=== PATIENT | female | born 1945 | race Caucasian/White ===

== ENCOUNTER 2017-09-29 10:37 | Emergency (ER) | payer MEDICARE, OTHER ==
[~2017-09-29 10:37] MED LIST: AMOX500C2 PO
--- OUTSIDE RECORDS SUMMARY | 2017-09-29 10:42 | XMS REPORT | Clinical Summary ---
Author Author [facility] Organization [facility] Address Unknown Phone Unavailable Care Team Providers Care Digital Marketing Program Manager Name Role Phone Mario Gibson MD Unavailable Unavailable Lyla Quinones MD Unavailable Source Comments Some departments are not documenting in the electronic medical record. If you do not see the information that you expected, contact Release of Information in the Health Information Management department at [phone] for further assistance in locating additional records.[facility] Allergies Active Allergy Reactions Severity Noted Date Comments Penicillins UNKNOWN 07/15/2013 Current Medications Prescription Sig. Disp. Refills Start End Date Status Date pimozide(+) (ORAP) 2 mg Pt to take 1/2 pill for 60 Tab 3 07/15/19 Active tablet 7-10 day qHS. If 14 tolerated can increase to full pill, pt can eventually increase to 1.5 to 2 pills Active Problems Not on file Family History Relation Name Status Comments Social History Tobacco Use Types Packs/Day Years Used Date Former Smoker Sex Assigned at Date Recorded Not on file Last Filed Vital Signs Vital Sign Reading Time Taken Blood Pressure 119/64 07/15/2013 12:53 PM EMERGENCY WORKER Pulse - - Temperature - - Respiratory Rate - - Oxygen Saturation - - Inhaled Oxygen - - Concentration Weight 56.3 kg (124 lb 3.2 oz) 07/15/2013 12:53 PM EMERGENCY WORKER Height 162.6 cm (5' 4") 07/15/2013 12:53 PM EMERGENCY WORKER Body Mass Index 21.32 07/15/2013 12:53 PM EMERGENCY WORKER Plan of Treatment Health Maintenance Due Date Last Done Comments PHYSICAL (COMPREHENSIVE) 1952 EXAM PERTUSSIS VACCINE 1954 TETANUS VACCINE 1960 BREAST CANCER SCREENING 1983 COLORECTAL CANCER 1993 SCREENING SHINGLES VACCINE 2003 OSTEOPOROSIS SCREENING 2008 PREVNAR/PNEUMOVAX (#1) 2008 INFLUENZA VACCINE 04/08/2018 Results Not on filefrom Last 3 Months
== END 2017-09-29 10:54 ==
LOC: EDUNIT# 10:37 → ER 10:39
DX: M62.81 Muscle weakness (generalized) (principal)

== ENCOUNTER → 2017-10-08 | Outpatient (CLI) | payer MEDICARE, OTHER ==
[~2017-10-08] MED LIST changes: +CATHETER FLUSH 10 ML SYR IV SCH
--- NOTE | 2017-10-08 13:21 | Diagnostic Imaging Report ---
INDICATION: Right upper quadrant pain. TECHNIQUE: Acquisitions were acquired over the abdomen after the administration of 5.49 mCi of technetium 99m Choletec. The ejection fraction was calculated after the patient ingested one can of Ensure given at 60 minutes. FINDINGS: There is homogeneous uptake of isotope throughout the liver. There is significant accumulation within the gallbladder by 30 minutes. There is free flow of activity in the small bowel. The ejection fraction was calculated to be 26%. IMPRESSION: No evidence of cystic duct obstruction; however, there is an abnormal ejection fraction of 26%. Dictated by: Dictated on workstation # [id number]
== END ==
LOC: CARD 09:40
PROVIDERS: ATTEND Nurse Practitioner Family
DX: R10.11 Right upper quadrant pain (principal); K82.8 Other specified diseases of gallbladder
CPT/HCPCS: 78227

== ENCOUNTER 2017-10-22 11:00 | Outpatient (CLI) | payer MEDICARE, OTHER ==
[~2017-10-22] VITALS: Ht 162.6 cm; Wt 58.5 kg
[~2017-10-22 11:00] MED LIST changes: -CATHETER FLUSH 10 ML SYR IV SCH
== END 2017-10-22 11:42 ==
LOC: PREOP 11:00
PROVIDERS: ATTEND Surgery
DX: Z01.818 Encounter for other preprocedural examination (principal); Z12.11 Encounter for screening for malignant neoplasm of colon; K21.9 Gastro-esophageal reflux disease without esophagitis; K82.8 Other specified diseases of gallbladder

== ENCOUNTER 2017-10-25 08:35 | Day surgery (SDC) | payer MEDICARE, OTHER ==
[~2017-10-25] VITALS: Ht 162.6 cm; Wt 58.5 kg
--- OUTSIDE RECORDS SUMMARY | 2017-10-25 08:38 | XMS REPORT | Clinical Summary ---
Author Author [facility] Organization [facility] Address Unknown Phone Unavailable Care Team Providers Care Employment Law Attorney Name Role Phone Mario Gibson MD Unavailable Unavailable Lyla Quinones MD Unavailable Source Comments Some departments are not documenting in the electronic medical record. If you do not see the information that you expected, contact Release of Information in the Health Information Management department at [phone] for further assistance in locating additional records.[facility] Allergies Active Allergy Reactions Severity Noted [...] Taken Blood Pressure 119/64 07/15/2013 12:53 PM EXTRACTOR FILLER Pulse - - Temperature - - Respiratory Rate - - Oxygen Saturation - - Inhaled Oxygen - - Concentration Weight 56.3 kg (124 lb 3.2 oz) 07/15/2013 12:53 PM EXTRACTOR FILLER Height 162.6 cm (5' 4") 07/15/2013 12:53 PM EXTRACTOR FILLER Body Mass Index 21.32 07/15/2013 12:53 PM EXTRACTOR FILLER Plan of Treatment Health Maintenance Due Date Last Done Comments PHYSICAL (COMPREHENSIVE) 1950 EXAM PERTUSSIS VACCINE 1954 TETANUS VACCINE 1960 BREAST CANCER SCREENING 1983 COLORECTAL CANCER 1993 SCREENING SHINGLES VACCINE 2003 OSTEOPOROSIS SCREENING 2008 PREVNAR/PNEUMOVAX (#1) 2008 INFLUENZA VACCINE 04/08/2018 Results Not on filefrom Last 3 Months
--- OUTSIDE RECORDS SUMMARY | 2017-10-25 08:39 | XMS REPORT | Continuity of Care Document ---
Author Author [facility] Organization [facility] Address Unknown Phone Unavailable Allergies Active Description Code Type Severity Reaction Onset Reported/Identified Relationship to Patient Clinical Status Yes NO KNOWN DRUG ALLERGIES UNKNOWN NO KNOWN DRUG ALLERG Yes Penicillins [id number] Drug Allergy Unknown N/A 11/02/2014 Medications Medication Packaging Start Date Stop Date Route Dosage Sig LEVALBUTEROL LIQ 1.25 MG/3ML (XOPENEX) MG 09/11/2017 09/11/2017 PRN ONCE AZITHROMYCIN TAB 500 MG (ZITHROMAX) MG 09/11/2017 09/11/2017 ONCE&2208 CEFTRIAXONE VIAL INJ 500 MG (ROCEPHIN VIAL) MG 09/11/2017 09/11/2017 ONCE&2208 METHYLPREDNISOLONE VIAL INJ 40 MG/CC (SOLU-MEDROL VIAL) MG 09/11/2017 09/11/2017 ONCE&2208 Problems Date Dx Coded Attending Type Code Diagnosis Diagnosed By 11/02/2014 DEON GILLIAM MD Ot 724.5 BACKACHE NOS 11/02/2014 Ot 785.1 08/16/2017 MICHI NARANJO JR 724.2 LUMBAGO 08/16/2017 MICHI NARANJO JR M54.5 LOW BACK PAIN 09/05/2017 Rio Osman W 575.10 CHOLECYSTITIS, UNSPECIFIED 09/05/2017 Elli Osman-[place] W 789.01 ABDOMINAL PAIN, RIGHT UPPER QUADRANT 09/05/2017 Meagan OsmanGeorgia W K81.9 CHOLECYSTITIS, UNSPECIFIED 09/05/2017 Rio Osman W R10.11 RIGHT UPPER QUADRANT PAIN 09/05/2017 Elli Osman-[place] W 575.10 CHOLECYSTITIS, UNSPECIFIED 09/05/2017 Elli Osman-[place] W 789.01 ABDOMINAL PAIN, RIGHT UPPER QUADRANT 09/05/2017 Rio Osman W K81.9 CHOLECYSTITIS, UNSPECIFIED 09/05/2017 Dominik Osmann-[place] W R10.11 RIGHT UPPER QUADRANT PAIN 09/07/2017 Osman, Roxaneu W 575.10 CHOLECYSTITIS, UNSPECIFIED 09/07/2017 Osman, Roxaneu W 789.01 ABDOMINAL PAIN, RIGHT UPPER QUADRANT 09/07/2017 Dawson, Roxaneu W K81.9 CHOLECYSTITIS, UNSPECIFIED 09/07/2017 Osman, Roxaneu W R10.11 RIGHT UPPER QUADRANT PAIN 09/07/2017 Osman, Roxaneu W 575.10 CHOLECYSTITIS, UNSPECIFIED 09/07/2017 Osman, Roxaneu W 789.01 ABDOMINAL PAIN, RIGHT UPPER QUADRANT 09/07/2017 Osman, Roxaneu W K81.9 CHOLECYSTITIS, UNSPECIFIED 09/07/2017 Osman, Roxaneu W R10.11 RIGHT UPPER QUADRANT PAIN 09/11/2017 AYO PÉREZ A 465.8 ACUTE UPPER RESPIRATORY INFECTIONS OF OTHER MULTIPLE SITES 09/11/2017 ELISAAYO W 786.5 CHEST PAIN 09/11/2017 ELISAAYO A J06.9 ACUTE UPPER RESPIRATORY INFECTION, UNSPECIFIED 09/11/2017 ELISAAYO W R07.89 OTHER CHEST PAIN 09/29/2017 KERRI MENA DO Ot M62.81 MUSCLE WEAKNESS (GENERALIZED) 10/05/2017 Ot 785.1 PALPITATIONS 10/08/2017 Ot 785.1 PALPITATIONS 10/08/2017 Ot 785.1 PALPITATIONS 10/09/2017 TARUN, JAZZ L WEB MOBILE DESIGNER Ot K82.8 OTHER SPECIFIED DISEASES OF GALLBLADDER 10/09/2017 TARUN, JAZZ L WEB MOBILE DESIGNER Ot R10.11 RIGHT UPPER QUADRANT PAIN 10/15/2017 TARUN, JAZZ L WEB MOBILE DESIGNER Ot K82.8 OTHER SPECIFIED DISEASES OF GALLBLADDER 10/15/2017 TARUN, JAZZ L WEB MOBILE DESIGNER Ot R10.11 RIGHT UPPER QUADRANT PAIN 10/17/2017 TARUN, JAZZ L WEB MOBILE DESIGNER Ot K82.8 OTHER SPECIFIED DISEASES OF GALLBLADDER 10/17/2017 TARUN, JAZZ L WEB MOBILE DESIGNER Ot R10.11 RIGHT UPPER QUADRANT PAIN 10/18/2017 Ot 785.1 PALPITATIONS 10/18/2017 TARUN, JAZZ L WEB MOBILE DESIGNER Ot K82.8 OTHER SPECIFIED DISEASES OF GALLBLADDER 10/18/2017 JAZZ MCNEIL WEB MOBILE DESIGNER Ot R10.11 RIGHT UPPER QUADRANT PAIN 10/19/2017 MIGEL DODD MD, Ot K21.9 GASTRO-ESOPHAGEAL REFLUX DISEASE WITHOUT 10/19/2017 MIGEL DODD MD, Ot K82.8 OTHER SPECIFIED DISEASES OF GALLBLADDER 10/19/2017 MIGEL DODD MD, Ot Z01.818 ENCOUNTER FOR OTHER PREPROCEDURAL EXAMIN 10/19/2017 MIGEL DODD MD, Ot Z12.11 ENCOUNTER FOR SCREENING FOR MALIGNANT NE 10/22/2017 MIGEL DODD MD, Ot K21.9 GASTRO-ESOPHAGEAL REFLUX DISEASE WITHOUT 10/22/2017 MIGEL DODD MD, Ot K82.8 OTHER SPECIFIED DISEASES OF GALLBLADDER 10/22/2017 MIGEL DODD MD, Ot Z01.818 ENCOUNTER FOR OTHER PREPROCEDURAL EXAMIN 10/22/2017 MIGEL DODD MD, Ot Z12.11 ENCOUNTER FOR SCREENING FOR MALIGNANT NE Procedures There is no data. Results Test Result Range Comprehensive Metabolic Panel - 09/05/17 10:18 Albumin 4.0 g/dL 3.6-5.1 ALP 66 U/L 35-130 ALT 17 U/L 6-45 Anion Gap 9 6-14 AST 19 U/L 2-40 BUN 13 mg/dL 5-25 Calcium 10.2 mg/dL 8.3-10.4 Chloride 108 mmol/L 95-114 CO2 27 mEq/L 22-33 Creat 0.84 mg/dL 0.50-1.50 eGFR 66 mL/min/1.73m2 >59 Globulin 2.5 g/dL 2.3-3.5 Glucose 104 mg/dL 70-110 Osmo 288 280-295 Potassium 4.6 mmol/L 3.5-5.3 Sodium 139 mmol/L 134-148 TBil 0.6 mg/dL 0.2-1.2 TP 6.5 g/dL 6.0-8.3 Gamma Glutamyl Transferase - 09/05/17 10:18 GGT 18 U/L 5-40 Lipase - 09/05/17 10:18 Lipase 24 U/L 7-59 Troponin I - 09/11/17 21:38 Troponin <0.020 ng/mL 0.0-0.4 CK-MB - 09/11/17 21:38 CK-MB 2.9 ng/ml 0.0-9.2 Encounters ACCT No. Visit Date/Time Discharge Status Pt. Type Provider Facility Loc./Unit Complaint [id number] 10/22/2017 11:00:00 10/22/2017 11:42:00 DIS Outpatient MIGEL DODD MD [facility] PREOP BILIARY DYSKINESIA, REFLUX/SCREENING [id number] 10/08/2017 09:40:00 10/08/2017 23:59:59 CLS Outpatient JAZZ MCNEIL APRN [facility] CARD RUQ PAIN [id number] 09/29/2017 10:39:00 09/29/2017 10:54:00 DIS Emergency KERRI MENA DO [facility] ER WEAKNESS IN LEGS [id number] 11/02/2014 19:02:00 11/02/2014 20:45:00 DIS Emergency DEON GILLIAM MD [facility] ER BACK PAIN [id number] 10/25/2017 09:45:00 PEN Preadmit MIGEL DODD MD [facility] SDC BILIARY DYSKINESIA, REFLUX/SCREENING [id number] 07/24/2012 07:53:00 Document Registration [id number] 09/11/2017 21:26:00 09/11/2017 22:55:00 DIS Outpatient ELISA [facility] ER [id number] 09/07/2017 11:54:00 09/07/2017 23:59:00 DIS Outpatient Rio Osman [id number] 09/05/2017 10:14:00 09/05/2017 23:59:00 DIS Outpatient Rio Osman [id number] 06/28/2017 11:59:00 08/16/2017 08:45:00 [place]patient [place]ARANJO [place] [id number] 09/11/2017 21:51:55 Document Registration
[2017-10-25] MEDS ORDERED: CLINDAMYCIN 600 MG/50 ML IVPB 50 ML IV ONE (09:15)
[2017-10-25] MEDS ORDERED: CATHETER FLUSH 10 ML SYR IV PRN (09:15)
[2017-10-25] MEDS: LACTATED RINGERS 1,000 ML IV PRN ×2 (09:18→13:15)
[2017-10-25 09:31] VITALS: BP 114/90
[2017-10-25] MEDS ORDERED: LIDOCAINE PF 2% 5 ML (XYLOCAINE) VIAL ONE (10:18)
[2017-10-25] MEDS ORDERED: fentaNYL INJECTION 100 MCG/2 ML AMP ONE (10:18)
[2017-10-25] MEDS ORDERED: DEXAMETHASONE 10 MG/ML (DECADRON) 1 ML VIAL ONE (10:18)
[2017-10-25] MEDS ORDERED: proPOfol 200 MG/20 ML (DIPRIVAN) VIAL IV ONE (10:18)
[2017-10-25] MEDS ORDERED: SEVOFLURANE (ULTANE) 15 ML INHAL SOLN ONE ×6 (10:18→12:29)
[2017-10-25] MEDS ORDERED: ONDANSETRON 4 MG/2 ML (SDV) Z0FRAN ONE (10:18)
[2017-10-25] MEDS ORDERED: MIDAZOLAM 2 MG/2 ML (VERSED) VIAL ONE (10:18)
[2017-10-25] MEDS ORDERED: ROCURONIUM 10 MG/ML 5 ML SYRINGE IV ONE (10:19)
--- NOTE | 2017-10-25 10:29 | Progress Note-Pre Operative ---
Pre-Operative Progress Note H&P Reviewed The H&P was reviewed, patient examined and no changes noted. Date Seen by Provider: Oct 25, 2017 Time Seen by Provider: 10:00 Date H&P Reviewed: Oct 25, 2017 Time H&P Reviewed: 10:00 Pre-Operative Diagnosis: symptomatic chronic acalulous cholecystitis, GERD, screening o MIGEL DODD MD Oct 25, 2017 10:29 am
[2017-10-25] MEDS ORDERED: HYDROcodone/APAP 5 MG/325 MG (LORTAB) TAB PO ONE (10:30)
[2017-10-25] MEDS ORDERED: ONDANSETRON 4 MG/2 ML (SDV) Z0FRAN IVP PRN ×2 (10:30→12:45)
[2017-10-25] MEDS ORDERED: morphine INJ 10 MG/ML 1ML (SYR OR VIAL) IVP PRN (10:30)
[2017-10-25] MEDS ORDERED: ACETAMINOPHEN 325 MG TABLET PO PRN (10:30)
[2017-10-25] MEDS ORDERED: BUP/EPI 0.5% 1:200,000 (SENSORCAINE) 30 ML VIAL ONE (10:33)
[2017-10-25] MEDS ORDERED: NEOSTIGMINE 1 MG/ML 5 ML SYRINGE ONE (11:51)
[2017-10-25] MEDS ORDERED: GLYCOPYRROLATE 0.2 MG/ML (ROBINUL) 2 ML VIAL ONE (11:51)
--- NOTE | 2017-10-25 12:51 | Progress Note-Post Operative ---
Post-Operative Progess Note Surgeon (s)/Hearing Aid Fitter (s) Surgeon MIGEL DODD MD Hearing Aid Fitter: maikol scott FOOD SERVICE TEAM MEMBER Pre-Operative Diagnosis symptomatic chronic acalulous cholecystitis, GERD, screening colo Post-Operative Diagnosis symptomatic chronic acalculous cholecystitis. reflux esophagitis(class B), moderate HH(3cm), mild-mod gastritis. chronic stage 2ext and int hemorroids, moderate sigmoid diverticulosis. Procedure & Operative Findings Date of Procedure 10/25/17 Procedure Performed/Findings laparoscopic cholecystectomy. EGD with bx. Colonoscopy. Anesthesia Type GET Estimated Blood Loss Estimated blood loss (mL): minimal Specimens/Packing Specimens Removed GE jxn, antrum MIGEL DODD MD Oct 25, 2017 12:51 pm
[2017-10-25] MEDS ORDERED: HYDR-34 PO (12:53)
--- NOTE | 2017-10-25 12:53 | Discharge Inst-Surgical ---
D/C Lap Instructions-JU New, Converted, or Re-Newed RX: RX on Chart Follow Up Appt in 2 weeks Activity as tolerated No driving for 24 hours No driving while on pain medications Incentive Spirometry use every 2 hours while awake Regular Diet Symptoms to Report: Fever over 101 degree F, Nausea/Vomiting Infection Signs and Symptoms to report: Increased redness, Foul odor of wound, Increased drainage Bathing instructions: May shower Operative Area Clean/Dry; Keep incision clean/dry If any problems/questions: Contact your physician or go to Emergency Room MIGEL DODD MD Oct 25, 2017 12:53 pm
[2017-10-25] MEDS: morphine INJ 10 MG/ML 1ML (SYR OR VIAL) IVP PRN ×2 (13:10→13:15)
[2017-10-25 13:50] VITALS: BP 97/69
--- NOTE | 2017-10-25 14:00 | Anesthesia-General Post-Op ---
General Patient Condition Mental Status/LOC: Same as Preop Cardiovascular: Satisfactory Nausea/Vomiting: Absent Respiratory: Satisfactory Pain: Controlled Complications: Absent Post Op Complications Complications None Follow Up Care/Instructions Patient Instructions None needed. Anesthesia/Patient Condition Patient Condition Patient is doing well, no complaints, stable vital signs, no apparent adverse anesthesia problems. No complications reported per nursing. ROSSY HUNT CRNA Oct 25, 2017 14:00
[2017-10-25 14:20] VITALS: BP 106/71
[2017-10-25 14:50] VITALS: BP 120/80
[2017-10-25 15:00] VITALS: BP 120/80
[2017-10-25] MEDS ORDERED: BUP/EPI 0.5% 1:200,000 (SENSORCAINE) 30 ML VIAL INJ ONE (15:00)
--- NOTE | 2017-10-25 20:45 | OPERATIVE REPORT ---
DATE OF SERVICE: 10/25/2017 ATTENDING PRIMARY CARE PHYSICIAN: Dr. Osman. PREOPERATIVE DIAGNOSES: Symptomatic chronic acalculous cholecystitis. Gastroesophageal reflux disease, screening colonoscopy. POSTOPERATIVE DIAGNOSES: Chronic acalculous cholecystitis, no stones; reflux esophagitis class B; small to moderate size hiatal hernia, approximately 3 cm in size; mild to moderate gastritis; chronic stage II external and internal hemorrhoids; moderate sigmoid diverticulosis. PROCEDURES: EGD with biopsy, colonoscopy, laparoscopic cholecystectomy. SURGEON: Migel Suarez MD. BACTERIOLOGIST FISHERY: Rusty Chapman APRN. ANESTHESIA: General endotracheal. ESTIMATED BLOOD LOSS: Minimal. FINDINGS: Chronic gallbladder wall inflammation as well as dilatation. Reflux esophagitis class B with a moderate size hiatal hernia approximately 3 cm in size, mild to moderate gastritis with no formal ulcers, polyps or any neoplasms. Chronic stage II external and internal hemorrhoids, not actively edematous nor inflamed and no bleeding. Mild to moderate sigmoid diverticulosis with no mucosal inflammatory changes. The remainder of the colon was normal. There were no polyps identified. DISPOSITION: The patient tolerated procedure well. INDICATIONS: The patient is a 72-year-old female, who has had a longstanding history of reflux; however, in the past 6 months, she has had a right upper abdominal quadrant pain with radiation towards the back with associated nausea. She also reports that her reflux has worsened to the point of occasional episodes of regurgitation. She was started on omeprazole and states that this initially helped with her symptoms; however, she has had reoccurrence. She reports the greasy foods do make her symptoms worse. She has also not had a colonoscopy up to this point in her life. An ultrasound was also performed of the gallbladder, which did not show any gallstones; however, she did have a HIDA scan which did show a low ejection fraction and reproduction of symptoms consistent with a chronic acalculous cholecystitis. DESCRIPTION OF PROCEDURE: The patient was brought to the operating room, laid supine on the table. After adequate IV pain and sedating medications and general endotracheal intubation, the abdomen was prepped and draped in standard surgical fashion. Marcaine 0.5% with epinephrine was then used to anesthetize the overlying skin in the left upper abdominal quadrant and a transverse skin incision made using a 15 blade. An 0 silk suture was applied to the medial aspect of the incision for retraction and a Veress needle inserted with a low opening pressure of 0 mmHg and the abdomen was inflated to 15 mmHg pressure. The Veress needle removed and a 5 mm Xcel trocar placed followed by a 5 mm 45 degree angle laparoscope visualizing the peritoneal cavity. A 4-quadrant abdominal exploration was performed. There was a dilated gallbladder with mild chronic inflammatory changes. What was visualized the liver, stomach, omentum appeared normal. Under direct visualization, we then proceed to place a supraumbilical 10 mm port after the skin and peritoneal lining were anesthetized using 0.5% Marcaine with epinephrine and a transverse skin incision made using a 15 blade. In a similar manner, a right upper abdominal quadrant 5 mm port was placed. The fundus of the gallbladder was then retracted anteriorly and superiorly and the patient was placed in reverse Trendelenburg position as well as plane right side up, left side down. The hepatoduodenal ligament was then opened using electrocautery as well as blunt dissection on the hook instrument. The entire critical view of safety was identified including the triangle of Calot, the cystic duct and the artery as the only two structures going into the gallbladder as well as the cystic plate behind the proximal gallbladder. A timeout was then taken. The cystic duct and artery were then clipped proximally and distally and cut with EndoShears. The gallbladder was then dissected off the liver bed using electrocautery on a hook instrument with visualization of good hemostasis as well as no leaking ducts of Luschka. The gallbladder was removed through the 10 mm port site using EndoCatch bag. The 10 mm port site fascia and peritoneum were then closed under direct visualization using a Martinez-Hesham device and 0 Vicryl suture. The abdomen was desufflated and remaining ports removed. All skin incisions were closed using a 4-0 Monocryl running subcuticular sutures. Wounds were then cleaned and covered with Dermabond. The patient tolerated this portion of the procedure well. We will start her on a clear liquid diet and advance, as well as IV and oral pain medication. When she is tolerating clears, has good pain control with oral pain medications, ambulating well, we will discharge her home. She will be instructed to do no heavy lifting or exertion for the next two weeks as well. Under the same anesthesia, we then proceeded with the EGD portion of the procedure. The endoscope was placed in the mouth, visualizing the pharynx and hypopharyngeal region. Vocal cords, epiglottis and vallecula identified and appeared to be normal. The endoscope was then gently intubated in the esophageal opening, esophagus insufflated. Endoscope was then advanced to the first, second and third portion of the esophagus at the level of the GE junction, a reflux esophagitis class B identified. There were no ulcers or strictures identified in this region. A biopsy was taken with forceps with visualization good hemostasis. The endoscope was then easily advanced in the stomach and the endoscope retroflexed, visualizing a small to moderate size hiatal hernia approximately 3 cm in size. There was a mild to moderate gastritis with no formal ulcers, polyps or any neoplasms identified. A biopsy was taken of the stomach antrum with forceps with visualization of good hemostasis. The endoscope was then advanced to the pylorus and the first and second portion of the duodenum, which appeared normal. No distal obstructions. The endoscope was then slowly withdrawn taking a second look and suctioning residual air with no additional findings. The patient tolerated this portion of the procedure well. We will recommend the necessary lifestyle and diet accommodation including small and more frequent meals, avoidance of eating at night as well as head elevation while lying supine. She also needs to avoid caffeinated beverages, spicy, greasy and acidic foods. If she continues to have symptoms of reflux and regurgitation despite maximal medical therapy, we will then consider potential for hiatal hernia repair; however, most of these are resolved medically. Under the same anesthesia, we then proceeded with the colonoscopy portion of the procedure. A digital rectal examination was performed, which revealed chronic stage II external and internal hemorrhoids, not actively edematous nor inflamed and no bleeding. Normal sphincter tone was felt and there were no palpable masses. The endoscope was then intubated and anus, rectum gently insufflated. The endoscope was then advanced through the valves of Mendez of the rectum with no polyps or any neoplasms identified. We then proceed to the sigmoid colon where a moderate sigmoid diverticulosis identified. There were no mucosal inflammatory changes to indicate any active diverticulitis. The endoscope was then advanced to the remainder of the descending, transverse and ascending colon to the cecum. These segments were normal. There were no polyps or any neoplasms identified throughout the colon or rectum. The endoscope was slowly withdrawn with taking a second look and suctioning of residual air with no additional findings. The patient tolerated the procedure well. We will recommend a high fiber diet with at least 25 grams of fiber per day as well as 64 fluid ounces of water daily. If she remains asymptomatic, she does not need another colonoscopy for another 10 years. Job ID: [id number] DocumentID: [id number] Dictated Date: 10/25/2017 12:51:36 Hat Block Bench Hand Date: 10/25/2017 20:45:13 Dictated By: MIGEL SUAREZ MD
== END 2017-10-25 15:00 | disposition home or self-care (01) ==
LOC: SDC 08:35
PROVIDERS: ATTEND Surgery
DX: K81.1 Chronic cholecystitis (principal); Z12.11 Encounter for screening for malignant neoplasm of colon; K57.30 Diverticulosis of large intestine without perforation or abscess without bleeding; K64.1 Second degree hemorrhoids; K21.0 Gastro-esophageal reflux disease with esophagitis; K44.9 Diaphragmatic hernia without obstruction or gangrene; K29.70 Gastritis, unspecified, without bleeding; Z87.891 Personal history of nicotine dependence
CPT/HCPCS: 43239; 47562; G0121; 87081; 88304; 88305; 94664

== ENCOUNTER → 2017-11-28 | Outpatient (CLI) | payer MEDICARE, OTHER ==
[~2017-11-28] MED LIST changes: +HYDR-34 PO; +IOHEXOL 350 MG/ML 100 ML (OMNIPAQUE 350) VIAL IV ONE; +NS 250 ML (IVPB) BAG IV ONE
[2017-11-28 09:06] LABS: HEMOGLOBIN 13.5 G/DL (11.5-16.0); MEAN PLATELET VOLUME 9.5 FL (7.4-10.4); RED BLOOD COUNT 4.27 10^6/uL (4.35-5.85); WHITE BLOOD COUNT 5.5 10^3/uL (4.3-11.0)
--- NOTE | 2017-11-28 09:09 | Diagnostic Imaging Report ---
PROCEDURE: CT abdomen and pelvis with and without contrast. TECHNIQUE: Precontrast acquisitions were acquired through the abdomen and pelvis. Multiple contiguous axial images were obtained through the abdomen and pelvis after the administration of intravenous contrast. INDICATION: Status post cholecystectomy approximately 5 weeks ago. Patient has continued right-sided abdominal pain. No prior CT studies are available for comparison. The lung bases are clear. No discrete liver mass is identified. The gallbladder is surgically absent. No fluid collection in the gallbladder fossa is identified. The pancreas and spleen are unremarkable. No adrenal mass is detected. Small cortical low-density upper pole left kidney is noted suggestive of a cyst. The aorta is nonaneurysmal. Small and large bowel loops are normal caliber. No obstruction is seen. The bladder is unremarkable. No abdominal or pelvic lymphadenopathy is identified. Bony structures appear nonacute. There does appear to be a small fat containing umbilical hernia. IMPRESSION: Essentially unremarkable CT of the abdomen and pelvis. No acute feature is detected. Dictated by: Dictated on workstation # [id number]
[2017-11-28 09:28] LABS: ALANINE AMINOTRANSFERASE 14 U/L (0-55); ALKALINE PHOSPHATASE 63 U/L (40-136); BILIRUBIN,TOTAL 0.5 MG/DL (0.1-1.0); BUN/CREATININE RATIO 15; CALCIUM 9.3 MG/DL (8.5-10.1); CARBON DIOXIDE 24 MMOL/L (21-32); CHLORIDE 107 MMOL/L (98-107); CREATININE SERUM 0.82 MG/DL (0.60-1.30); GFR ESTIMATED > 60; GLUCOSE 97 MG/DL (70-105); POTASSIUM 4.8 MMOL/L (3.6-5.0); SODIUM 139 MMOL/L (135-145); TOTAL PROTEIN 6.2 GM/DL (6.4-8.2)
== END ==
LOC: RAD 07:52
PROVIDERS: ATTEND Nurse Practitioner Family
DX: R10.9 Unspecified abdominal pain (principal); Z90.49 Acquired absence of other specified parts of digestive tract
CPT/HCPCS: 36415; 74178; 80053; 85027

== ENCOUNTER 2022-06-27 08:36 | Outpatient (RCR) | payer MEDICARE, OTHER ==
[~2022-06-27 08:36] MED LIST changes: -IOHEXOL 350 MG/ML 100 ML (OMNIPAQUE 350) VIAL IV ONE; -NS 250 ML (IVPB) BAG IV ONE
== END 2022-07-08 | disposition home or self-care (01) ==
PROVIDERS: ATTEND Nurse Practitioner Family
DX: M54.50 Low back pain, unspecified (principal); G89.29 Other chronic pain